=== PATIENT | female | born 1955 | race Asian ===

== ENCOUNTER 2017-06-09 13:17 | Emergency (ER) | payer OTHER ==
--- NOTE | 2017-06-09 14:07 | ED Physician Documentation ---
PD HPI ABD PAIN - Stated complaint Stated Complaint: FEMALE - Chief complaint Chief Complaint: Abd Pain - History obtained from History obtained from: Patient - History of Present Illness Timing - onset: Other (She has had a week's worth of left low back pain but for the last day she has had suprapubic pain and urinary frequency similar to prior UTI which she has not had in many years though. 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, Hysterectomy - Present Medications Home Medications: Ambulatory Orders Medication Instructions Recorded Confirmed Aspirin [Aspir-Low] 1 tab PO DAILY 05/02/15 05/02/15 Calcium Carbonate/Vitamin D3 1 tab PO DAILY 05/02/15 05/02/15 [Calcium 500 + Vit D Caplet] Glipizide 5 mg PO DAILY 05/02/15 05/02/15 Levothyroxine [Synthroid] 1 tab PO DAILY 05/02/15 05/02/15 Simvastatin 20 mg PO DAILY 05/02/15 05/02/15 Sitagliptin Phos/Metformin HCl 1 each PO BID 05/02/15 05/02/15 [Janumet Xr 100-1,000 mg Tablet] predniSONE [Deltasone] 10 mg PO DAILY #26 tablet 05/02/15 - Allergies Allergies/Adverse Reactions: Allergies Allergy/AdvReac Type Severity Reaction Status Date / Time erythromycin base Allergy Intermediate Hives Verified 06/09/17 13:37 - Social History Does the pt smoke?: No Smoking Status: Never smoker Does the pt drink ETOH?: No Does the pt have substance abuse?: No - Immunizations Immunizations are current?: Yes - POLST Patient has POLST: No PD ED PE NORMAL - Vitals Vital signs reviewed: Yes - General General: Alert and oriented X 3, No acute distress - Abdomen Abdomen: Soft, Non tender - Back Back: No CVA TTP, No spinal TTP - Neuro Neuro: Alert and oriented X 3, Normal speech Results - Vitals Vitals: Vital Signs - 24 hr 06/09/17 06/09/17 13:34 14:10 Temperature 36.5 C 36.4 C L Heart Rate 100 59 L Respiratory 18 12 Rate Blood Pressure 146/60 H 153/54 H O2 Saturation 100 100 Oxygen O2 Source Room air - Labs Labs: Laboratory Tests 06/09/17 06/09/17 06/09/17 13:46 14:45 14:45 WBC 7.2 RBC 4.19 L Hgb 12.4 Hct 35.8 L MCV 85.6 MCH 29.6 MCHC 34.6 RDW 13.1 Plt Count 246 MPV 7.6 L Neut # 4.3 Lymph # 2.2 [place] # 0.5 Eos # 0.1 Baso # 0.1 Absolute Nucleated RBC 0.00 Nucleated RBC % 0.0 Sodium 135 Potassium 4.0 Chloride 101 Carbon Dioxide 26 Anion Gap 8.0 BUN 9 Creatinine 0.6 Estimated GFR (MDRD) 102 Glucose 159 H Calcium 9.3 Total Bilirubin 0.3 AST 21 ALT 16 Alkaline Phosphatase 65 Total Protein 7.4 Albumin 4.1 Globulin 3.3 Albumin/Globulin Ratio 1.2 Lipase 27 Urine Color YELLOW Urine Clarity CLEAR Urine pH 6.0 Ur Specific [place] <=1.005 Urine Protein NEGATIVE Urine Glucose (UA) >=1000 H Urine Ketones NEGATIVE Urine Occult Blood NEGATIVE Urine Nitrite NEGATIVE Urine Bilirubin NEGATIVE Urine Urobilinogen 0.2 (NORMAL) Ur Leukocyte Esterase NEGATIVE Ur Microscopic Review NOT INDICATED Urine Culture Comments NOT INDICATED PD MEDICAL DECISION MAKING - ED course ED course: She has urinary frequency and suprapubic pressure that is keeping her up but no dysuria Her urine is only positive for glucosuria, but her blood sugar is not too bad. Departure - Departure Disposition: 01 Home, Self Care Clinical Impression: Suprapubic pain, Frequency of urination Condition: Good Record reviewed to determine appropriate education?: Yes Instructions: ED Pelvic Pain [facility] Comments: Call your doctor to arrange a follow-up appointment, make the next available appointment. In the interim, return anytime if worse or if new symptoms develop. Your blood pressure was elevated today on check into the emergency department. This does not mean that you have hypertension, it is a common phenomenon to come to the emergency department and have elevated blood pressure. I recommend that you see your primary care physician within the week to have it rechecked when you are feeling better.
[2017-06-09 14:11] VITALS: BP 153/54
[2017-06-09 14:31] LABS: BILIRUBIN,URINE NEGATIVE (NEGATIVE); CLARITY,URINE CLEAR (CLEAR); GLUCOSE, URINE (UA) >=1000 mg/dL (NEGATIVE); KETONES,URINE (UA) NEGATIVE (NEGATIVE); LEUKOCYTE ESTERASE, URINE NEGATIVE (NEGATIVE); NITRITE,URINE NEGATIVE (NEGATIVE); OCCULT BLOOD,URINE NEGATIVE (NEGATIVE); PROTEIN,URINE NEGATIVE (NEGATIVE); UROBILINOGEN,URINE 0.2 (NORMAL) E.U./dL (NORMAL)
[2017-06-09 14:49] LABS: BASOPHILS # (AUTO) 0.1 10^3/uL (0.0-0.1); BASOPHILS % (AUTO) 1.3 %; EOSINOPHILS # (AUTO) 0.1 10^3/uL (0.0-0.7); HGB - HEMOGLOBIN 12.4 g/dL (12.0-16.0); LYMPHOCYTES # (AUTO) 2.2 10^3/uL (1.5-3.5); LYMPHOCYTES % (AUTO) 29.9 %; MEAN CORPUSCULAR HEMOGLOBIN 29.6 pg (27.0-31.0); MEAN CORPUSCULAR HGB CONC 34.6 g/dL (32.0-36.0); MEAN CORPUSCULAR VOLUME 85.6 fL (81.0-99.0); MEAN PLATELET VOLUME 7.6 fL (7.9-10.8); MONOCYTES # (AUTO) 0.5 10^3/uL (0.0-1.0); MONOCYTES % (AUTO) 7.1 %; NEUTROPHILS # (AUTO) 4.3 10^3/uL (1.5-6.6); NEUTROPHILS % (AUTO) 59.7 %; PLT - PLATELET COUNT 246 10^3/uL (130-450); RED BLOOD COUNT 4.19 10^6/uL (4.20-5.40); RED CELL DISTRIBUTION WIDTH 13.1 % (12.0-15.0); WHITE BLOOD COUNT 7.2 x10^3/uL (4.8-10.8)
[2017-06-09 15:00] LABS: ALBUMIN 4.1 g/dL (3.2-5.5); ALBUMIN/GLOBULIN RATIO 1.2 (1.0-2.2); BILIRUBIN,TOTAL 0.3 mg/dL (0.2-1.0); CALCIUM 9.3 mg/dL (8.5-10.3); CREATININE 0.6 mg/dL (0.4-1.0); TOTAL PROTEIN 7.4 g/dL (6.7-8.2)
== END 2017-06-09 15:10 | disposition home or self-care (01) ==
LOC: ED 13:17
DX: R10.30 Lower abdominal pain, unspecified (principal); R35.0 Frequency of micturition; R03.0 Elevated blood-pressure reading, without diagnosis of hypertension; E11.9 Type 2 diabetes mellitus without complications; E03.9 Hypothyroidism, unspecified; Z79.82 Long term (current) use of aspirin
CPT/HCPCS: 36415; 80053; 81001; 81003; 83690; 85025; 87086; 99282

== ENCOUNTER 2018-01-15 22:01 | Emergency (ER) | payer OTHER ==
[2018-01-15] MEDS ORDERED: predniSONE 20 MG TABLET PO STA (23:01)
--- NOTE | 2018-01-15 23:12 | ED Physician Documentation ---
PD HPI SKIN - Stated complaint Stated Complaint: ALLERGIC REACTION - Chief complaint Chief Complaint: Wound - History obtained from History obtained from: Patient - History of Present Illness Timing - onset: Chronic Timing - details: Gradual onset, Still present Location: Face Quality / character: Painful, Discolored Similar symptoms before: Work up / diagnostics Recently seen: Clinic - Additional information Additional information: patient is a 62 year old female with a history of asthma/vs dermatitis who is presenting to the emergency department for a rash on her face. patient states that she had it for awhile. she saw her pmd who did not want to start her on steroids due to her diabetes and did not want to use topical steroids because she did not want to change the pigmentation of her face. the patient reports that she went to the gym tonight for two hours and it worsened her symptoms. Review of Systems Ten Systems: 10 systems reviewed and negative Skin: reports: Rash PD PAST MEDICAL HISTORY - Past Medical History Past Medical History: Yes Endocrine/Autoimmune: Type 2 diabetes, HyPOthyroidism - Past Surgical History Past Surgical History: Yes /POURER: Tubal ligation, Hysterectomy - Present Medications Home Medications: Ambulatory Orders Medication Instructions Recorded Confirmed Aspirin [Aspir-Low] 1 tab PO DAILY 05/02/15 05/02/15 Calcium Carbonate/Vitamin D3 1 tab PO DAILY 05/02/15 05/02/15 [Calcium 500 + Vit D Caplet] Glipizide 5 mg PO DAILY 05/02/15 05/02/15 Levothyroxine [Synthroid] 1 tab PO DAILY 05/02/15 05/02/15 Simvastatin 20 mg PO DAILY 05/02/15 05/02/15 Sitagliptin Phos/Metformin HCl 1 each PO BID 05/02/15 05/02/15 [Janumet Xr 100-1,000 mg Tablet] predniSONE [Deltasone] 10 mg PO DAILY #26 tablet 05/02/15 predniSONE [Prednisone] 40 mg PO DAILY 3 Days tablet 01/15/18 - Allergies Allergies/Adverse Reactions: Allergies Allergy/AdvReac Type Severity Reaction Status Date / Time erythromycin base Allergy Intermediate Hives Verified 01/15/18 22:46 - Social History Does the pt smoke?: No Smoking Status: Never smoker Does the pt drink ETOH?: No Does the pt have substance abuse?: No - Immunizations Immunizations are current?: Yes - POLST Patient has POLST: No PD ED PE NORMAL - Vitals Vital signs reviewed: Yes - General General: Alert and oriented X 3 - Cardiac Cardiac: RRR - Respiratory Respiratory: No respiratory distress - Abdomen Abdomen: Soft - Neuro Neuro: Alert and oriented X 3 Eye Opening: Spontaneous PD ED PE EXPANDED - HEENT HEENT Visual: 1 - rash 2 - rash - Derm Derm: Rash (erythematous, dry cracking rash around both eyes and on both hands) Results - Vitals Vitals: Vital Signs - 24 hr 01/15/18 22:05 Temperature 36.5 C Heart Rate 65 Respiratory 18 Rate Blood Pressure 165/64 H O2 Saturation 100 Oxygen O2 Source Room air PD MEDICAL DECISION MAKING - ED course Complexity details: reviewed old records, reviewed results, re-evaluated patient, considered differential, d/w patient ED course: Patient was seen and examined at bedside. patient had derm follow up in two days. the risks and benefits of topical and oral steroids were discussed with the patient and she stated she wanted to do a trial of oral steroids. patient was given prednisone along with detailed discharge and follow up instructions. patient required no further work up and was stable for discharge with outpatient follow up. - Sepsis Event Vital Signs: Vital Signs - 24 hr 01/15/18 22:05 Temperature 36.5 C Heart Rate 65 Respiratory 18 Rate Blood Pressure 165/64 H O2 Saturation 100 Oxygen O2 Source Room air Departure - Departure Disposition: 01 Home, Self Care Clinical Impression: Eczema Condition: Good Instructions: Dermatitis Atopic Follow-Up: primary,care provider [Other] - Within 3 Days Prescriptions: predniSONE [Prednisone] 40 mg PO DAILY 3 Days tablet Comments: You are being started on a short dose of steroids. You will need to check your blood sugar at least twice a day and discontinue if you see a significant raise. topical medications will most likely have the most benefit. You should follow up with your appointment with the project developer. You should avoid hot showers or excessive sweating as they can exacerbate your symptoms. You may return to the emergency department at any time for new, worsening or uncontrollable symptoms. Discharge Date/Time: 01/15/18 23:34
[2018-01-15 23:33] VITALS: BP 159/75
== END 2018-01-15 23:34 | disposition home or self-care (01) ==
LOC: ED 22:01
DX: L30.9 Dermatitis, unspecified (principal); E11.9 Type 2 diabetes mellitus without complications; J45.909 Unspecified asthma, uncomplicated; Z79.84 Long term (current) use of oral hypoglycemic drugs
CPT/HCPCS: 99283; J7512

== ENCOUNTER 2020-07-07 07:39 | Outpatient (CLI) | payer OTHER ==
--- NOTE | 2020-07-07 17:39 | XRAY Report ---
PROCEDURE: Knee Standing RT INDICATIONS: RIGHT KNEE PAIN TECHNIQUE: 4 views of the right knee. COMPARISON: None. FINDINGS: Bones: No acute fractures or dislocations. No suspicious bony lesions. Joint spaces appear normal with weightbearing. Moderate to severe osteoarthritic degenerative changes noted in the medial compar tment. Moderate osteoarthritic degenerative noted in the patellofemoral compartment. Mild osteoarthri tic degenerative changes noted in the lateral compartment. Soft tissues: No knee joint effusions. No suspicious soft tissue calcification. IMPRESSION: Right knee tricompartmental osteoarthritis. Reviewed by: Karin Modi MD, PhD on 07/07/2020 5:38 PM PDT Approved by: Karin Modi MD, PhD on 07/07/2020 5:38 PM PDT Station ID: [id number]
== END 2020-07-07 23:59 | disposition home or self-care (01) ==
LOC: DI.N 07:39
PROVIDERS: ATTEND Orthopaedic Surgery
DX: M17.11 Unilateral primary osteoarthritis, right knee (principal)